=== PATIENT | female | born 1930 | race Caucasian/White ===

== ENCOUNTER 2018-11-25 09:17 | Inpatient (IN) | payer MEDICARE, OTHER ==
[~2018-11-25] VITALS: Ht 147.3 cm; Wt 63.5 kg
[2018-11-25 09:37] LABS: BASOPHILS # (AUTO) 0.1 /CMM (0.0-0.2); BASOPHILS % (AUTO) 1.3 % (0.0-2.0); EOSINOPHILS % (AUTO) 1.3 % (0.0-6.0); HEMATOCRIT 35 % (33-45); HEMOGLOBIN 11.6 g/dL (11.5-14.8); LYMPHOCYTES # (AUTO) 1.4 /CMM (0.8-4.8); LYMPHOCYTES % (AUTO) 22.8 % (20.0-44.0); MEAN CORPUSCULAR HGB CONC 33 g/dl (31.0-36.0); MEAN CORPUSCULAR VOLUME 95 fL (82-100); MONOCYTES # (AUTO) 0.5 /CMM (0.1-1.30); MONOCYTES % (AUTO) 7.3 % (2.0-12.0); NEUTROPHILS # (AUTO) 4.2 /CMM (1.8-8.9); NEUTROPHILS % (AUTO) 67.3 % (43.0-81.0); PLATELET COUNT (AUTO) 210 /CMM (150-450); WHITE BLOOD COUNT (AUTO) 6.3 K/uL (4.3-11.0)
--- NOTE | 2018-11-25 09:39 | NUR ---
BIB [facility] MECHIANICAL FALL IN RESTROOM. C/O RT HIP PAIN, POSS DEFORMITY. -KO. PT AAOX3, VSS. DENIES CP, SOB, [place], DIZZINESS, N/V @ THIS TIME. PT SEEN & EVAL'D BY DR. MARRERO. PLACED ON JOINER APPRENTICE, PACING. WILL CONT TO MONITOR.
[2018-11-25 09:44] LABS: CALCIUM, SERUM 9.3 mg/dL (8.5-10.1); CARBON DIOXIDE 30 mmol/L (21-32); CHLORIDE 103 mmol/L (98-107); CREATININE 0.7 mg/dL (0.6-1.3); GLUCOSE 109 mg/dL (74-106); SODIUM SERUM 140 mmol/L (136-145); UREA NITROGEN, BLOOD 19 mg/dL (7-18)
[2018-11-25] MEDS ORDERED: MORPHINE SULFATE INJ 2 MG/ML DISP.SYRIN ONE (10:41)
--- NOTE | 2018-11-25 10:45 | NUR ---
MEDICATED FOR PAIN PER ERMD ORDER, PT GAURI WELL. WILL CONT TO MONITOR.
[2018-11-25] MEDS ORDERED: MORPHINE SULFATE INJ 2 MG/ML DISP.SYRIN IV ONE (11:00)
--- NOTE | 2018-11-25 11:34 | NUR ---
PAGED [employer] FOR PANEL - SEQUINS SPOOLER MILE NOLAND
--- NOTE | 2018-11-25 12:07 | NUR ---
PAGED ORTHO FOR CONSULT
--- NOTE | 2018-11-25 12:16 | NUR ---
CALLED NURSE HYACINTH FOR MED.SURG BED
[2018-11-25] MEDS ORDERED: MAG HYDROX/AL HYDROX/SIMETH 30 ML UDC PO PRN (12:30)
[2018-11-25] MEDS ORDERED: ONDANSETRON HCL/PF 4 MG/2 ML VIAL IVP PRN (12:30)
[2018-11-25] MEDS ORDERED: MAGNESIUM HYDROXIDE 30 ML UDC PO PRN (12:30)
[2018-11-25] MEDS ORDERED: HYDROCODONE/APAP 5/325MG 1 EACH TABLET PO PRN (12:30)
[2018-11-25] MEDS ORDERED: ACETAMINOPHEN 325 MG TABLET PO PRN (12:30)
[2018-11-25] MEDS ORDERED: Z GUARD REMEDY 2 OZ OINT TP PRN (12:30)
--- NOTE | 2018-11-25 12:41 | NUR ---
PAGED ORTHO FOR CONSULT AGAIN
--- NOTE | 2018-11-25 12:46 | NUR ---
PT ASLEEP, EASILY AWAKEN WITH VERBAL STIMULI, PT STS RT HIP PAIN 12/15 & GUARI WELL. DENIES CP, SOB, DIZZINESS, N/V, WEAKNESS @ THIS TIME. WILL CONT TO MONITOR.
--- NOTE | 2018-11-25 13:20 | NUR ---
REPORT GIVEN TO DONA JUAREZ FOR CONT OF CARE.
[2018-11-25 14:15] VITALS: BP 125/65
--- NOTE | 2018-11-25 14:30 | NUR ---
RN OPENING MS NOTES Admitted patient from ER, with diagnosis of right hip fracture, assisted to bed. Room set up, orientation provided. With no complaint of pain, pain given at ER. call light within reach, assisted with needs.
[2018-11-25] MEDS: MORPHINE SULFATE INJ 2 MG/ML DISP.SYRIN IV PRN (15:22)
[2018-11-25 16:00] VITALS: BP 121/80
--- NOTE | 2018-11-25 18:08 | NUR ---
RN MS CLOSING NOTES Patient refused to have a urinary catheter inserted, explained the benefits of the procedure to the patient but still refused. Patient seen by Dr. espinoza, plan of care discussed with patient. Patient verbalizes understanding. Also seen by Tom moody, plan of care discussed with patient. Vital signs are stable, call light within reach, safety measure in place.
[2018-11-25] MEDS: IV NS 0.9% 1,000 ML IV PRN (18:20)
[2018-11-25 20:00] VITALS: BP 122/74
[2018-11-26] MEDS: MORPHINE SULFATE INJ 2 MG/ML DISP.SYRIN IV PRN ×3 (02:15→09:05)
--- NOTE | 2018-11-26 07:00 | NUR ---
RN CLOSING NOTES PATIENT IS ASLEEP IN BED, EASILY AWAKEN WITH VERBAL STIMULI. PATIENT HAS NO SIGNS OF RESPIRATORY DISTRESS OR SHORTNESS OF BREATH. IV SITE: [facility] G#20 IS PATENT AND INTACT. PAIN LEVEL 6/10. LAST PAIN MED GIVEN AT 0417. SAFETY PRECAUTIONS IMPLEMENTED: BED IN LOW POSITION, BED LOCKED, SIDERAILS UP. WILL ENDORSE TO AM SHIFT.
--- NOTE | 2018-11-26 07:30 | NUR ---
m/s double needle operator: initial assessment received pt in bed awake, a/ox2-3 with forgetfulness and disorientation. pt teaching guides provided to pt re: the need for urinary catheter and pt verbalized understanding and agreed to have it. kept pt npo for possible transfer to another acute hospital for right hip surgery. instructed to call for assistance. will monitor.
[2018-11-26 07:37] LABS: BASOPHILS % (AUTO) 0.3 % (0.0-2.0); EOSINOPHILS % (AUTO) 0.6 % (0.0-6.0); HEMATOCRIT 28 % (33-45); HEMOGLOBIN 9.3 g/dL (11.5-14.8); LYMPHOCYTES # (AUTO) 1.1 /CMM (0.8-4.8); LYMPHOCYTES % (AUTO) 15.7 % (20.0-44.0); MEAN CORPUSCULAR HGB CONC 34 g/dl (31.0-36.0); MEAN CORPUSCULAR VOLUME 94 fL (82-100); MONOCYTES # (AUTO) 0.8 /CMM (0.1-1.30); MONOCYTES % (AUTO) 10.8 % (2.0-12.0); NEUTROPHILS # (AUTO) 5.1 /CMM (1.8-8.9); NEUTROPHILS % (AUTO) 72.6 % (43.0-81.0); PLATELET COUNT (AUTO) 149 /CMM (150-450); RED BLOOD CELL COUNT(AUTO) 2.96 MIL/uL (4.0-5.2)
[2018-11-26 07:50] LABS: CALCIUM, SERUM 8.6 mg/dL (8.5-10.1); CARBON DIOXIDE 29 mmol/L (21-32); CHLORIDE 105 mmol/L (98-107); CREATININE 0.8 mg/dL (0.6-1.3); GLUCOSE 109 mg/dL (74-106); PHOSPHORUS 3.4 mg/dL (2.5-4.9); POTASSIUM 4.6 mmol/L (3.5-5.1); SODIUM SERUM 141 mmol/L (136-145); UREA NITROGEN, BLOOD 18 mg/dL (7-18)
[2018-11-26 07:58] LABS: CHOLESTEROL 151 mg/dL (<200); HDL CHOLESTEROL 83 mg/dL (40-60); LDL 60 mg/dL (0-99); TRIGLYCERIDES 31 mg/dL (30-150)
[2018-11-26 08:00] VITALS: BP 124/79
--- NOTE | 2018-11-26 08:00 | NUR ---
m/s bottom saw operator: notes inserted 16fr x 10ml patrick catheter via aseptic technique, lucita. well. will continue to monitor.
--- NOTE | 2018-11-26 09:05 | NUR ---
m/s order taker: notes c/o 06/16 right hip pain, medicated with morphine sulfate 2mg ivp by rn. will continue to monitor.
--- NOTE | 2018-11-26 09:35 | NUR ---
m/s hand sample maker: notes pt resting comfortable in bed with eyes close. no s/s of discomfort. anil (daughter) on the phone and updated plan of care. kept pt npo, pending transfer to another acute hospital. remains on ivf, infusing well. wilber (case management) making arrangement. will continue to monitor.
[2018-11-26] MEDS ORDERED: LOSA25TA27 PO (09:41)
[2018-11-26] MEDS ORDERED: LEVO50TA8 PO (09:41)
--- NOTE | 2018-11-26 10:00 | NUR ---
m/s workforce management coordinator: notes pt refused to be repositioned due to pain when moving. will monitor.
--- NOTE | 2018-11-26 11:00 | NUR ---
m/s acid dipper: notes resting comfortable in bed. no distress noted. will continue to monitor.
--- NOTE | 2018-11-26 12:00 | NUR ---
m/s educational fundraising director: notes pt refused to be repositioned due to pain when moving. will monitor.
--- NOTE | 2018-11-26 14:00 | NUR ---
m/s mining professionals: cardio f/u dr. espinoza at bedside and on the phone with the daughter. pending transfer to another acute hospital. dr. espinoza updated pt and daughter re: plan of care. will continue to monitor. Addendum: 11/26/18 at 1656 by LUISANA RODRIGUEZ HISTOLOGY TEACHER pt refused to be turned and repositioned due to pain when moving. will monitor.
--- NOTE | 2018-11-26 15:04 | NUR ---
m/s interstate planner: notes received order from hospitalist to discharge pt to another acute hospital. order acknowledged. wilber (case management) still working on transfer. pt and daughter aware. will continue to monitor.
--- NOTE | 2018-11-26 15:45 | NUR ---
m/s martial arts instructor: notes anil (daughter) here and updated plan of care. informed pt and daughter that we are still working on bed availability at [facility]. will continue to monitor.
--- NOTE | 2018-11-26 16:00 | NUR ---
m/s estimator project manager: notes pt refused to be repositioned due to pain when moving. will monitor.
--- NOTE | 2018-11-26 16:06 | NUR ---
m/s correspondence school instructor: notes anil (daughter) leaving at this time and will be home in an hour as stated. will call daughter once we have a bed at the medical center.
[2018-11-26 16:07] VITALS: BP 150/75
[2018-11-26] MEDS: IV NS 0.9% 1,000 ML IV PRN (17:21)
--- NOTE | 2018-11-26 18:15 | NUR ---
m/s clerical assistant: notes c/o 03/16 right hip pain, medicated with norco 1 tab po as ordered. wilber (case management) called and informed me that pt is to be picked up at 1999. report given to juan pablo (rn paper products supervisor) at [facility] for continuity of care and given me a room 2302 tele unit. anil (daughter) notified and made aware, spoke to her over the phone and gave her the room number and unit.
--- NOTE | 2018-11-26 18:30 | NUR ---
m/s learning technologies specialist: notes discharge instructions given to pt and acknowledged transfer to [facility]. eta of ambulance at 1999. called daughter about belongings, stated, "yes i took all the clothes because i was told she doesn't need them."
--- NOTE | 2018-11-26 19:00 | NUR ---
m/s scheduling representative: notes report given to titi (rn) for continuity of care. eta of ambulance to pick her up is at 2000 per case management. pt aware.
--- NOTE | 2018-11-26 19:05 | NUR ---
RN INITIAL NOTES: RECEIVED REPORT FROM DAY STEPH LIEBERMAN, PT A/O X3 ON RA RESPIRATION EVEN AND UNLABORED, RECEIVED NORCO NOT TOO LONG AGO STATED HER PS NOW IS 3/10. IV ACCESS PATENT AND FLUSHING WELL, INFUSING WITH NS AT 50ML/HR. [facility], FOR EVALUATION WITH CARDIAC ANESTHESIOLOGIST DUE TO SEVERE AORTIC STENOSIS BASED ON ECHO. ALL DC PAPER WORKS COMPLETED BY STEPH LIEBERMAN, SIGNED BY PT, FAMILY AWARE OF PT GOING TO [facility]. ACCEPTING MD DR WISE, CARDIO DR DOMINGUEZ. SAFETY PRECAUTIONS FOR FALL INITIATED, CALL LIGHT IN REACH WILL CONTINUE TO MONITOR PT.
[2018-11-26 20:00] VITALS: BP 121/54
[2018-11-26 20:33] VITALS: BP 106/54
--- NOTE | 2018-11-26 20:40 | NUR ---
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 REPORT GIVEN BY NATTY CHOI TO RN NURSE NAMED MEAGAN, PT WILL BE GOING TO ROOM 2302 TELE UNIT. ARMBAND REMOVED, IV ACCESS WILL BE KEPT IN PLACED, TOOK PHOTOS, NO INFILTRATION NOTED, NIX CATHETER IN PLACED. ALL BELONGING SENT WITH THE PT UPON TRANSFER. PT LEFT THE UNIT VIA AMBULANCE ACCOMPANIED BY EMT.
[2018-11-27] MEDS ORDERED: LEVOTHYROXINE SODIUM 25 MCG TABLET PO SCH (07:30)
[2018-11-27] MEDS ORDERED: LOSARTAN POTASSIUM 25 MG TABLET PO SCH (09:00)
== END 2018-11-26 20:40 | disposition short-term general hospital (02) | DRG 536 ==
LOC: ER 09:20 → MED 13:08
PROVIDERS: ADMIT Nurse Practitioner Acute Care; ATTEND Nurse Practitioner Acute Care
DX: S72.141A Displaced intertrochanteric fracture of right femur, initial encounter for closed fracture (principal); W01.0XXA Fall on same level from slipping, tripping and stumbling without subsequent striking against object, initial encounter; I10 Essential (primary) hypertension; E03.9 Hypothyroidism, unspecified; Z95.0 Presence of cardiac pacemaker; Z96.652 Presence of left artificial knee joint; I35.0 Nonrheumatic aortic (valve) stenosis; S72.121A Displaced fracture of lesser trochanter of right femur, initial encounter for closed fracture; Y92.009 Unspecified place in unspecified non-institutional (private) residence as the place of occurrence of the external cause
CPT/HCPCS: 36415; 71045-TC; 73502; 73552; 80048-TC; 80061-TC; 83735-TC; 84100-TC; 84443-TC; 85025-TC; 85730-TC; 86850-TC; 87081-TC; 93307-TC; G0378; J2270; J7030